=== PATIENT | male | born 1990 | race Caucasian/White ===

== ENCOUNTER 2016-07-24 20:56 | Emergency (ER) | payer SELFPAY ==
[2016-07-24 21:32] LABS: BASOPHIL 0.9 % (0-2); EOSINOPHIL 2.7 % (0-5); HCT 44.2 % (42.0-52.0); HGB 15.2 g/dl (13.2-18.0); LYMPHOCYTE 34.5 % (15-48); MCH 31.8 pg (25.0-31.0); MCHC 34.4 g/dL (32.0-36.0); MCV 92.5 fL (78.0-100.0); MONOCYTE 7.9 % (0-12); MPV 10.1 fL (6.0-9.5); PLT 257 K/uL (150-400); RBC 4.78 M/uL (4.70-6.00); RDW 12.9 % (11.5-14.0)
[2016-07-24 21:43] LABS: INR 0.97 (0.9-1.2); PROTHROMBIN TIME 12.5 SECONDS (11.7-14.0); PTT 26.8 SECONDS (23.2-31.4)
[2016-07-24 21:53] LABS: ALBUMIN 4.5 g/dL (3.5-5.0); BILIRUBIN - TOTAL 0.3 mg/dL (0.1-1.0); CKMB 1.83 ng/mL (0.97-4.94); CREATININE 0.9 mg/dL (0.7-1.2); GLOBULIN (CALCULATION) 2.4 g/dL (2.2-4.2); MAGNESIUM 2.21 mg/dL (1.40-2.10); MYOGLOBIN 35 ng/mL (26-65); POTASSIUM 3.9 mmol/L (3.5-5.1); PRO-BNP 24 pg/mL (0-125); TOTAL PROTEIN 6.9 g/dL (6.4-8.3); TROPONIN T < 0.010 ng/mL
== END 2016-07-24 23:30 | disposition home or self-care (01) ==
LOC: FER 20:56
PROVIDERS: Emergency Medicine
DX: R07.81 Pleurodynia (principal); R00.1 Bradycardia, unspecified; F17.200 Nicotine dependence, unspecified, uncomplicated
CPT/HCPCS: 36415; 71010; 71275; 80053; 82550; 82553; 83735; 83874; 83880; 84484; 85025; 85610; 85730; 93005; J1885; Q9967

== ENCOUNTER 2021-01-15 07:48 | Emergency (ER) | payer MEDICARE ==
[~2021-01-15 07:48] MED LIST: ETODOLAC500 MG PO
[2021-01-15 11:52] LABS: ALBUMIN 4.1 g/dL (3.4-5.0); BILIRUBIN - TOTAL 0.2 mg/dL (0.2-1.0); BUN/CREAT RATIO (CALC) 11.1 RATIO; CREATININE 0.99 mg/dL (0.67-1.17); GLOBULIN (CALCULATION) 3.4 g/dL; POTASSIUM 3.2 mmol/L (3.5-5.1); TOTAL PROTEIN 7.5 g/dL (6.4-8.2)
[2021-01-15] MEDS ORDERED: NAPROXEN500 MG PO (12:24)
== END 2021-01-15 12:57 | disposition home or self-care (01) ==
LOC: FER 07:48
PROVIDERS: Internal Medicine
DX: U07.1 COVID-19 (principal); E87.6 Hypokalemia
CPT/HCPCS: 36415; 70450; 71045; 80053; J1885; U0002

== ENCOUNTER 2021-04-15 19:44 | Emergency (ER) | payer SELFPAY ==
[~2021-04-15 19:44] MED LIST changes: +NAPROXEN500 MG PO
[2021-04-16] MEDS ORDERED: NORCO 5-325 TA1 EACH PO (00:21)
[2021-04-16] MEDS ORDERED: BACTRIM DS TAB1 EACH PO (00:22)
[2021-04-16] MEDS ORDERED: NAPROXEN500 MG PO (00:22)
== END 2021-04-16 00:55 | disposition home or self-care (01) ==
LOC: FER 19:44
DX: S61.210A Laceration without foreign body of right index finger without damage to nail, initial encounter (principal); F17.210 Nicotine dependence, cigarettes, uncomplicated; W26.0XXA Contact with knife, initial encounter; Y92.009 Unspecified place in unspecified non-institutional (private) residence as the place of occurrence of the external cause

== ENCOUNTER 2021-06-03 10:58 | Emergency (ER) | payer SELFPAY ==
[~2021-06-03 10:58] MED LIST changes: +BACTRIM DS TAB1 EACH PO; +NORCO 5-325 TA1 EACH PO
[2021-06-03 12:45] LABS: INFLUENZA A NAA NEGATIVE (NEGATIVE)
[2021-06-03 13:02] LABS: CORONAVIRUS 2019 SARS-COV-2 POSITIVE (NEGATIVE)
[2021-06-03] MEDS ORDERED: MEDROL 4MG DOSEP4 MG PO (13:47)
[2021-06-03] MEDS ORDERED: VENTOLIN HFA IN18 GM INH (13:47)
== END 2021-06-03 13:54 | disposition home or self-care (01) ==
LOC: FER 10:58
PROVIDERS: Emergency Medicine
DX: U07.1 COVID-19 (principal)
CPT/HCPCS: 99283; U0002

== ENCOUNTER 2021-06-24 16:29 | Emergency (ER) | payer SELFPAY ==
[~2021-06-24 16:29] MED LIST changes: +MEDROL 4MG DOSEP4 MG PO; +VENTOLIN HFA IN18 GM INH
[2021-06-24] MEDS ORDERED: KEFLEX250 MG PO (21:42)
== END 2021-06-24 22:18 | disposition home or self-care (01) ==
LOC: FER 16:29
DX: S61.042A Puncture wound with foreign body of left thumb without damage to nail, initial encounter (principal); F17.210 Nicotine dependence, cigarettes, uncomplicated; Z23 Encounter for immunization; W29.4XXA Contact with nail gun, initial encounter; Y92.009 Unspecified place in unspecified non-institutional (private) residence as the place of occurrence of the external cause
CPT/HCPCS: 73140; 90471; J2001

== ENCOUNTER 2021-07-28 07:25 | Emergency (ER) | payer SELFPAY ==
[~2021-07-28 07:25] MED LIST changes: +KEFLEX250 MG PO
[2021-07-28] MEDS ORDERED: IBUPROFEN600 MG PO (08:42)
[2021-07-28] MEDS ORDERED: FLEXERIL5 MG PO (08:42)
== END 2021-07-28 08:58 | disposition home or self-care (01) ==
LOC: FER 07:25
DX: S83.91XA Sprain of unspecified site of right knee, initial encounter (principal); F17.200 Nicotine dependence, unspecified, uncomplicated; X58.XXXA Exposure to other specified factors, initial encounter
CPT/HCPCS: 73564

== ENCOUNTER 2022-02-02 05:25 | Emergency (ER) | payer SELFPAY ==
[~2022-02-02 05:25] MED LIST changes: +FLEXERIL5 MG PO; +IBUPROFEN600 MG PO
[2022-02-02] MEDS ORDERED: AMOX TR-K CLV1 EAC4 PO (06:41)
== END 2022-02-02 07:23 | disposition home or self-care (01) ==
LOC: FER 05:25
DX: S61.451A Open bite of right hand, initial encounter (principal); S00.31XA Abrasion of nose, initial encounter; S99.922A Unspecified injury of left foot, initial encounter; S89.92XA Unspecified injury of left lower leg, initial encounter; F17.200 Nicotine dependence, unspecified, uncomplicated; Z28.310 Unvaccinated for COVID-19; Y04.0XXA Assault by unarmed brawl or fight, initial encounter
CPT/HCPCS: 73130; 73560; 73630; J1885